=== PATIENT | female | born 1955 | race Caucasian/White ===

== ENCOUNTER → 2019-07-24 | Day surgery (SDC) | payer MEDICARE ==
[~2019-07-24] MED LIST: ASPIRIN LOW DOS81 MG PO; CALCIUM600 M1 PO; FENTANYL CITRATE/PF 100MCG/2 ML INJ ONE; GABAPENTIN100 MG PO; GLUCAGON FOR INJ 1 MG VIAL ONE; HYOSCYAMINE 0.125 MG TAB ONE; LOSARTAN POTASS25 MG PO; MELOXICAM7.5 MG PO; METOCLOPRAMIDE HCL 10 MG/2ML VIAL ONE; MIDAZOLAM HCL 2 MG/2 ML VIAL ONE; MULTIVITAMINS1 EAC7 PEG; OMEPRAZOLE40 MG PO; ONDANSETRON HCL INJ 2MG/ML 2ML 2 MG/ML VIAL ONE; PROPOFOL IV EMULSION 10 MG/ML 20 ML VIAL ONE; SERTRALINE HCL50 MG PO; Z.0.DETROL LA4 MG PO; Z.0.PREMARIN0.45 MG PO; Z.0.SIMVASTATIN40 MG PO; Z.1.DIOVAN HCT 1601 PO; [UNRECOGNIZED DRUG - CODE]; [UNRECOGNIZED DRUG - OTHER]; [UNRECOGNIZED DRUG - OTHER]
[2019-07-24 13:45] VITALS: BP 120/80
--- NOTE | 2019-07-24 15:30 | Operative Report ---
DATE OF PROCEDURE: 07/24/2019 SURGEON: Elmo Yi MD PROCEDURE: Colonoscopy with polypectomy. INDICATIONS FOR COLONOSCOPY: Surveillance colonoscopy, personal history of colon polyps. MEDICATIONS: The patient was done under MAC, please see anesthesiologist's note. PROCEDURE IN DETAIL: With the patient in the left lateral decubitus position, a flexible fiberoptic Olympus colonoscope was inserted into the rectum with ease and advanced all the way to the cecum. An approximately 4 mm sessile polyp was removed per cold snare polypectomy from the cecum. Approximately 1.5 cm cluster of polyps was noted in the proximal ascending colon that was removed per snare electrocautery and site was hemoclipped x1. Two minute polyps were removed per the hot biopsy forceps also from the proximal ascending colon. The rest of the ascending and transverse appeared to be within normal limits. Diverticular disease was noted to involve the distal descending and the sigmoid colon. The rectum appeared to be within normal limits. The scope was then retroflexed into the distal rectum and small internal hemorrhoids were noted, none of which was actively bleeding. The scope was then straightened out, it was subsequently withdrawn, and the patient tolerated the procedure well. IMPRESSION: 1. Cecal polyp, cold snared. 2. Approximately 1.5 cm cluster of polyps, proximal ascending colon, hot snared and hemoclipped x1. 3. Proximal ascending colon polyps x2, hot biopsied. 4. Diverticulosis. 5. Internal hemorrhoids, none actively bleeding. PLAN: Follow up histology. Initiate high-fiber, low-fat diet. Initiate high-fiber supplement. The patient might benefit from a followup colonoscopy in 3 years. Elmo Yi MD [facility] [place][id number] cc: Дмитрий Quiroz DO
== END | disposition home or self-care (01) ==
LOC: OR 10:33
PROVIDERS: ATTEND Internal Medicine Gastroenterology
DX: Z09 Encounter for follow-up examination after completed treatment for conditions other than malignant neoplasm (principal); D12.2 Benign neoplasm of ascending colon; K59.09 Other constipation; K57.30 Diverticulosis of large intestine without perforation or abscess without bleeding; K64.8 Other hemorrhoids; G47.33 Obstructive sleep apnea (adult) (pediatric); E78.5 Hyperlipidemia, unspecified; Z20.5 Contact with and (suspected) exposure to viral hepatitis; I45.10 Unspecified right bundle-branch block; F32.9 Major depressive disorder, single episode, unspecified; Z88.6 Allergy status to analgesic agent; Z79.82 Long term (current) use of aspirin; Z68.32 Body mass index [BMI] 32.0-32.9, adult
CPT/HCPCS: 45384; 45385; J1610; J2250; J2405; J2704; J2765; J3010

== ENCOUNTER → 2024-08-13 | Outpatient (REF) | payer MEDICARE, OTHER ==
[~2024-08-13] MED LIST changes: -FENTANYL CITRATE/PF 100MCG/2 ML INJ ONE; -GLUCAGON FOR INJ 1 MG VIAL ONE; +HYDROCHLOROTHIA25 MG PO; -HYOSCYAMINE 0.125 MG TAB ONE; +IOPAMIDOL 370 MG/ML 100 ML INFUS..BTL INJ ONE; -METOCLOPRAMIDE HCL 10 MG/2ML VIAL ONE; -MIDAZOLAM HCL 2 MG/2 ML VIAL ONE; -MULTIVITAMINS1 EAC7 PEG; +MULTIVITAMINS1 EAC7 PO; +MYRBETRIQ50 MG PO; -ONDANSETRON HCL INJ 2MG/ML 2ML 2 MG/ML VIAL ONE; -PROPOFOL IV EMULSION 10 MG/ML 20 ML VIAL ONE; +SODIUM CHLORIDE 0.9% 100 ML ONE; +VIT B12 PO; -[UNRECOGNIZED DRUG - OTHER]; +[UNRECOGNIZED DRUG - OTHER] PO
[2024-08-13 14:09] LABS: CREATININE, SERUM 0.81 mg/dL (0.57-1.11)
== END ==
LOC: CT 13:15
PROVIDERS: ATTEND Internal Medicine Cardiovascular Disease
DX: I71.22 Aneurysm of the aortic arch, without rupture (principal)
CPT/HCPCS: 36415; 71275; 82565; 84520; J7050; Q9967